=== PATIENT | male | born 1965 | race Asian ===

== ENCOUNTER 2020-02-02 19:36 | Emergency (ER) | payer BC ==
[~2020-02-02] VITALS: Ht 177.8 cm; Wt 83.9 kg
[2020-02-02 20:28] VITALS: BP 157/91; TEMP 98.3
== END 2020-02-02 20:29 | disposition home or self-care (01) ==
LOC: ED 19:36
DX: K08.89 Other specified disorders of teeth and supporting structures (principal); I10 Essential (primary) hypertension
CPT/HCPCS: 96372; 99283; J0696; J1885

== ENCOUNTER 2020-06-22 07:34 | Outpatient (CLI) | payer BC | END 2020-06-22 21:22 | disposition home or self-care (01) | LOC: LAB 07:34 | DX: R80.9 Proteinuria, unspecified (principal); R31.9 Hematuria, unspecified | CPT/HCPCS: 81000; 84156; 84165 ==

== ENCOUNTER 2020-06-23 08:35 | Outpatient (CLI) | payer BC | END 2020-06-23 19:18 | disposition home or self-care (01) | LOC: LAB 08:35 → US 08:35 → LAB 19:18 | DX: R31.9 Hematuria, unspecified (principal); R80.9 Proteinuria, unspecified ==

== ENCOUNTER 2020-06-30 14:51 | Outpatient (CLI) | payer BC | END 2020-06-30 19:17 | disposition home or self-care (01) | LOC: US 14:51 | DX: R31.9 Hematuria, unspecified (principal) ==

== ENCOUNTER 2020-08-10 07:26 | Outpatient (CLI) | payer BC ==
[2020-08-10 08:26] LABS: PLATELET COUNT 181 K/uL (142-355)
[2020-08-10 08:50] LABS: POTASSIUM 4.5 mmol/L (3.6-5.2)
[2020-08-10 09:23] LABS: PARTIAL THROMBOPLASTIN TIME 25.1 SECONDS (24.5-33.6)
== END 2020-08-10 20:24 | disposition home or self-care (01) ==
LOC: CT 07:26
PROVIDERS: Internal Medicine
DX: R31.0 Gross hematuria (principal); I10 Essential (primary) hypertension
CPT/HCPCS: 36415; 80053; 81000; 82024; 82088; 82330; 82533; 82552; 83516; 83735; 83835; 84100; 84244; 84436; 84443; 85027; 85610; 85730; 86038; 86225; 86255; Q9963

== ENCOUNTER 2020-08-13 10:54 | Outpatient (CLI) | payer BC | END 2020-08-13 23:14 | disposition home or self-care (01) | LOC: LAB 10:54 | DX: I10 Essential (primary) hypertension (principal) | CPT/HCPCS: 82024; 84244 ==

== ENCOUNTER 2020-09-02 09:49 | Day surgery (SDC) | payer BC | END 2020-09-03 15:00 | disposition home or self-care (01) | LOC: OR 09:49 | PROVIDERS: ATTEND Internal Medicine Gastroenterology | PROC: 0DBP8ZZ Excision of Rectum, Via Natural or Artificial Opening Endoscopic (ICD-10-PCS; principal; 2020-09-02) | DX: K62.1 Rectal polyp (principal); K57.30 Diverticulosis of large intestine without perforation or abscess without bleeding; K64.8 Other hemorrhoids; Z86.010 Personal history of colon polyps; Z12.11 Encounter for screening for malignant neoplasm of colon | CPT/HCPCS: J2704 ==